=== PATIENT | male | born 1970 | race Caucasian/White ===

== ENCOUNTER 2023-11-14 16:07 | Emergency (ER) | payer MEDICAID ==
[~2023-11-14] VITALS: Ht 167.6 cm; Wt 77.0 kg
[2023-11-14 16:17] VITALS: TEMP 98.8; O2SAT 98
[2023-11-14] MEDS ORDERED: LIDO700A15 TP (22:03)
[2023-11-14] MEDS ORDERED: METH-653 MT (22:03)
[2023-11-14] MEDS ORDERED: IBUP-2028 MT (22:03)
[2023-11-14 22:34] VITALS: BP 149/81; PULSE 68; RESP 18
[2023-11-14] MEDS: IBUPROFEN 400MG TABLET PO ONE (22:34)
[2023-11-14] MEDS: IBUPROFEN 400MG TABLET PO NR (22:38)
[2023-11-14] MEDS: LIDOCAINE 5% PATCH TOP SCH (22:39)
[2023-11-14] MEDS: METHOCARBAMOL 750MG TABLET PO SCH (22:39)
== END 2023-11-14 22:41 | disposition home or self-care (01) ==
LOC: ER 16:07
DX: S50.312A Abrasion of left elbow, initial encounter (principal); S50.311A Abrasion of right elbow, initial encounter; V98.8XXA Other specified transport accidents, initial encounter; Y93.89 Activity, other specified; Y92.89 Other specified places as the place of occurrence of the external cause; Y99.8 Other external cause status
CPT/HCPCS: 72070; 72100; 73060; 73080; 99284